=== PATIENT | female | born 1995 | race Caucasian/White ===

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

== ENCOUNTER 2017-06-21 05:18 | Emergency (ER) | payer OTHER ==
[~2017-06-21] VITALS: Ht 160 cm; Wt 64.5 kg
[2017-06-21 06:50] VITALS: BP 124/76
== END 2017-06-21 06:59 | disposition home or self-care (01) ==
LOC: ED 05:18
DX: R30.0 Dysuria (principal)
CPT/HCPCS: 87491; 87591; J0696